=== PATIENT | male | born 1950 | race Caucasian/White ===

== ENCOUNTER 2020-10-31 09:58 | Day surgery (SDC) | payer OTHER ==
[2020-10-25 16:12] VITALS: BMI 29.7
[2020-10-31] MEDS ORDERED: PROPOFOL 20 ML ONE (10:09)
[2020-10-31 10:24] VITALS: TEMP 97.9
[2020-10-31 12:41] VITALS: BP 124/70; PULSE 82
== END 2020-10-31 12:35 | disposition home or self-care (01) ==
LOC: FASU-ENDO 09:58
PROVIDERS: ATTEND Internal Medicine Gastroenterology
PROC: 0DB78ZX Excision of Stomach, Pylorus, Via Natural or Artificial Opening Endoscopic, Diagnostic (ICD-10-PCS; 2020-10-31)
PROC: 0DB48ZX Excision of Esophagogastric Junction, Via Natural or Artificial Opening Endoscopic, Diagnostic (ICD-10-PCS; 2020-10-31)
PROC: 0DB98ZX Excision of Duodenum, Via Natural or Artificial Opening Endoscopic, Diagnostic (ICD-10-PCS; principal; 2020-10-31 11:47)
DX: K29.50 Unspecified chronic gastritis without bleeding (principal); Z87.11 Personal history of peptic ulcer disease
CPT/HCPCS: 88305-TC; 88342-TC

== ENCOUNTER 2021-02-27 10:54 | Day surgery (SDC) | payer OTHER ==
[2021-02-21 15:33] VITALS: BMI 29.7
[2021-02-27] MEDS ORDERED: PROPOFOL 20 ML ONE ×3 (12:49)
[2021-02-27] MEDS ORDERED: LIDOCAINE HCL/PF 2% SDV 5ML VIAL ONE (12:49)
[2021-02-27 13:19] VITALS: TEMP 97.8
[2021-02-27 14:28] VITALS: BP 140/63; PULSE 92
== END 2021-02-27 13:55 | disposition left against medical advice (07) ==
LOC: FASU-ENDO 10:54
PROVIDERS: ATTEND Internal Medicine Gastroenterology
PROC: 0DBL8ZX Excision of Transverse Colon, Via Natural or Artificial Opening Endoscopic, Diagnostic (ICD-10-PCS; 2021-02-27)
PROC: 0DBP8ZX Excision of Rectum, Via Natural or Artificial Opening Endoscopic, Diagnostic (ICD-10-PCS; 2021-02-27)
PROC: 0DBM8ZX Excision of Descending Colon, Via Natural or Artificial Opening Endoscopic, Diagnostic (ICD-10-PCS; 2021-02-27)
PROC: 0DBK8ZX Excision of Ascending Colon, Via Natural or Artificial Opening Endoscopic, Diagnostic (ICD-10-PCS; principal; 2021-02-27 12:45)
DX: K52.89 Other specified noninfective gastroenteritis and colitis (principal); K57.30 Diverticulosis of large intestine without perforation or abscess without bleeding; K64.0 First degree hemorrhoids; R19.7 Diarrhea, unspecified
CPT/HCPCS: 88305-TC; 88309-TC